=== PATIENT | female | born 1935 | race Two or more races ===

== ENCOUNTER 2020-09-24 13:36 | Inpatient (IN) | payer OTHER ==
[2020-09-24 13:41] VITALS: BMI 25.7
[2020-09-24] MEDS ORDERED: ACETAMINOPHEN 1000 MG/100 ML VIAL (NON FORMULARY) IVPB ONE (14:25)
[2020-09-24] MEDS ORDERED: SODIUM CHLORIDE 0.9% 500 ML INFUS.BAG IV ONE (14:25)
[2020-09-24] MEDS ORDERED: ONDANSETRON 4 MG/2 ML VIAL IVPUSH ONE (14:25)
[2020-09-24] MEDS ORDERED: FAMOTIDINE 20 MG/50 ML IVPB 20 MG/50 ML MG IVPB ONE ×2 (14:25→14:44)
[2020-09-24] MEDS ORDERED: ACETAMINOPHEN INJECTION 100 ML IVPB ONE (14:44)
[2020-09-24] MEDS ORDERED: ONDANSETRON 4 MG/2 ML VIAL ONE (14:44)
[2020-09-24 15:18] LABS: BASO % 0.3 % (0-2.0); EOS % 2.5 % (0-4.5); HEMATOCRIT 35.6 % (32.4-45.2); HEMOGLOBIN 11.8 GM/dL (10.7-15.3); LYMPH % 14.2 % (8-40); MCH 26.4 pg (25.7-33.7); MEAN CELL VOLUME 79.8 fl (80-96); MEAN PLT VOLUME 8.2 fl (7.5-11.1); MONO % 5.8 % (3.8-10.2); NEUT % 77.2 % (42.8-82.8); PLATELET COUNT 373 K/MM3 (134-434); RBC 4.46 M/mm3 (3.60-5.2); RDW 15.3 % (11.6-15.6); WHITE BLOOD COUNT 12.9 K/mm3 (4.0-10.0)
[2020-09-24 15:28] LABS: CHLORIDE 94 mmol/L (98-107); SODIUM 134 mmol/L (136-145)
[2020-09-24 15:31] LABS: ALBUMIN 3.2 g/dl (3.4-5.0); BLOOD UREA NITROGEN 17.8 mg/dL (7-18); CO2 30 mmol/L (21-32); GLUCOSE,RANDOM 119 mg/dL (74-106); LIPASE 71 U/L (73-393); MAGNESIUM 2.4 mg/dL (1.8-2.4)
[2020-09-24 15:33] LABS: CREATININE 0.7 mg/dL (0.55-1.3)
[2020-09-24 15:34] LABS: PHOSPHOROUS 3.2 mg/dL (2.5-4.9); SGOT/AST 28 U/L (15-37); SGPT/ALT 26 U/L (13-61)
[2020-09-24 15:35] LABS: BILIRUBIN,TOTAL 0.5 mg/dL (0.2-1); TOT PROT 7.2 g/dl (6.4-8.2)
[2020-09-24 15:36] LABS: ALK PHOS 72 U/L (45-117)
[2020-09-24 15:49] LABS: ANION GAP 10 MMOL/L (8-16)
[2020-09-24] MEDS ORDERED: POTASSIUM CHLORIDE TABS 20 MEQ TABLET.ER (FP) PO ONE ×4 (16:09→19:03)
[2020-09-24 16:29] LABS: PH,URINE 8.5 (5.0-8.0); URINE APPEARANCE CLEAR; URINE BILIRUBIN NEGATIVE (NEGATIVE); URINE COLOR YELLOW; URINE GLUCOSE (UA) NEGATIVE (NEGATIVE); URINE KETONE NEGATIVE (NEGATIVE); URINE LEUK ESTERASE NEGATIVE (NEGATIVE); URINE NITRITE NEGATIVE (NEGATIVE); URINE PROTEIN TRACE (NEGATIVE)
[2020-09-24] MEDS ORDERED: CIPROFLOXACIN 400 MG/D5W 400 MG/200 ML IVPB IVPB ONE (17:26)
[2020-09-24] MEDS ORDERED: LACTATED RINGERS SOLUTION 1,000 ML IV SCH (17:45)
[2020-09-24] MEDS ORDERED: POTASSIUM ACETATE IV SCH (17:49)
[2020-09-24] MEDS ORDERED: LACTATED RINGERS IV SCH (17:49)
[2020-09-24] MEDS ORDERED: LACTATED RINGERS SOLUTION 1,000 ML with POTASSIUM CHLORIDE 20 MEQ IV SCH ×2 (18:03→23:50)
[2020-09-24] MEDS ORDERED: ZOLPIDEM TARTRATE 5 MG TABLET PO PRN (22:00)
[2020-09-25] MEDS ORDERED: ZOLPIDEM TARTRATE 5 MG TABLET PO ONE (00:40)
[2020-09-25] MEDS: ROSUVASTATIN CA 10 MG TABLET (FP) PO SCH ×2 (01:26→21:20)
[2020-09-25 01:44] LABS: CALCIUM 8.9 mg/dL (8.5-10.1)
[2020-09-25 01:46] LABS: BLOOD UREA NITROGEN 14.8 mg/dL (7-18)
[2020-09-25 01:48] LABS: CREATININE 0.7 mg/dL (0.55-1.3)
[2020-09-25] MEDS: LEVOTHYROXINE NA 50 MCG TABLET (FP) PO SCH (06:06)
[2020-09-25] MEDS ORDERED: POTASSIUM CHLORIDE 20 MEQ in LACTATED RINGERS SOLUTION 1,000 ML IV SCH (07:53)
[2020-09-25 07:55] LABS: HEMATOCRIT 32.6 % (32.4-45.2); HEMOGLOBIN 11.1 GM/dL (10.7-15.3); MCH 26.8 pg (25.7-33.7); MEAN CELL VOLUME 78.7 fl (80-96); MEAN PLT VOLUME 8.3 fl (7.5-11.1); PLATELET COUNT 327 K/MM3 (134-434); RBC 4.15 M/mm3 (3.60-5.2); WHITE BLOOD COUNT 9.1 K/mm3 (4.0-10.0)
[2020-09-25 08:26] LABS: CALCIUM 8.6 mg/dL (8.5-10.1)
[2020-09-25 08:28] LABS: ALBUMIN 2.8 g/dl (3.4-5.0); BLOOD UREA NITROGEN 12.1 mg/dL (7-18); MAGNESIUM 2.2 mg/dL (1.8-2.4)
[2020-09-25 08:31] LABS: BILIRUBIN,TOTAL 0.5 mg/dL (0.2-1); CREATININE 0.6 mg/dL (0.55-1.3); PHOSPHOROUS 2.7 mg/dL (2.5-4.9)
[2020-09-25 08:33] LABS: TOT PROT 6.1 g/dl (6.4-8.2)
[2020-09-25] MEDS ORDERED: DEXTROSE 5%-WATER - 50 ML IVPB ONE (09:42)
[2020-09-25] MEDS ORDERED: cefTRIAXone SODIUM 1 GM VIAL ONE (09:42)
[2020-09-25] MEDS ORDERED: CEFTRIAXONE 1 GM in DEXTROSE 5%-WATER - 50 ML IVPB SCH (10:00)
[2020-09-25] MEDS: amLODIPine BESYLATE 10 MG TABLET (FP) PO SCH (10:32)
[2020-09-25] MEDS: CEFTRIAXONE 1 GM in DEXTROSE 5%-WATER - 50 ML IVPB SCH (10:32)
[2020-09-25] MEDS: POLYETHYLENE GLYCOL 3350 119 GM BTL PO SCH (21:19)
[2020-09-25] MEDS ORDERED: MELATONIN 5 MG TABLETS PO ONE (21:30)
[2020-09-26] MEDS: LEVOTHYROXINE NA 50 MCG TABLET (FP) PO SCH (06:04)
[2020-09-26 07:08] LABS: BASO % 0.8 % (0-2.0); EOS % 12.7 % (0-4.5); HEMATOCRIT 33.9 % (32.4-45.2); HEMOGLOBIN 11.6 GM/dL (10.7-15.3); LYMPH % 28.4 % (8-40); MCH 27.2 pg (25.7-33.7); MCHC 34.3 g/dl (32.0-36.0); MEAN CELL VOLUME 79.2 fl (80-96); MONO % 6.6 % (3.8-10.2); NEUT % 51.5 % (42.8-82.8); PLATELET COUNT 354 K/MM3 (134-434); RBC 4.29 M/mm3 (3.60-5.2); RDW 14.6 % (11.6-15.6); WHITE BLOOD COUNT 8.2 K/mm3 (4.0-10.0)
[2020-09-26 07:45] LABS: CALCIUM 8.9 mg/dL (8.5-10.1)
[2020-09-26 07:46] LABS: BLOOD UREA NITROGEN 8.6 mg/dL (7-18)
[2020-09-26 07:49] LABS: CREATININE 0.7 mg/dL (0.55-1.3)
[2020-09-26 07:50] LABS: BILIRUBIN,TOTAL 0.5 mg/dL (0.2-1)
[2020-09-26 07:51] LABS: TOT PROT 6.4 g/dl (6.4-8.2)
[2020-09-26] MEDS ORDERED: cefTRIAXone SODIUM 1 GM VIAL ONE (09:32)
[2020-09-26] MEDS ORDERED: DEXTROSE 5%-WATER - 50 ML IVPB ONE (09:33)
[2020-09-26] MEDS: amLODIPine BESYLATE 10 MG TABLET (FP) PO SCH (09:38)
[2020-09-26] MEDS: CEFTRIAXONE 1 GM in DEXTROSE 5%-WATER - 50 ML IVPB SCH (09:39)
[2020-09-26] MEDS: POLYETHYLENE GLYCOL 3350 119 GM BTL PO SCH ×2 (09:39→21:19)
[2020-09-26] MEDS ORDERED: POTASSIUM CHLORIDE ORAL LIQUID 20 MEQ/15 ML PO ONE (17:36)
[2020-09-26] MEDS ORDERED: ARTIFICIAL TEARS (POLYVINYL ALCOHOL) OPTH DROPS OU PRN (18:07)
[2020-09-26] MEDS ORDERED: POTASSIUM CHLORIDE TABS 20 MEQ TABLET.ER (FP) PO ONE (21:00)
[2020-09-26] MEDS: ARTIFICIAL TEARS (POLYVINYL ALCOHOL) OPTH DROPS OU SCH ×2 (21:16→21:22)
[2020-09-26] MEDS: LATANOPROST 0.005% OPHTH SOLN 2.5ML BOTTLE OU SCH (21:17)
[2020-09-26] MEDS: ROSUVASTATIN CA 10 MG TABLET (FP) PO SCH (21:18)
[2020-09-27] MEDS ORDERED: MELATONIN 5 MG TABLETS PO PRN (00:29)
[2020-09-27] MEDS ORDERED: ACETAMINOPHEN 325 MG TABLET (FP) PO PRN (00:30)
[2020-09-27] MEDS: MAG HYDROX/AL HYDROX/SIMETH 30 ML UNIT-DOSE CUP PO PRN (02:44)
[2020-09-27] MEDS: LEVOTHYROXINE NA 50 MCG TABLET (FP) PO SCH (06:22)
[2020-09-27 06:39] LABS: BASO % 0.6 % (0-2.0); HEMOGLOBIN 11.4 GM/dL (10.7-15.3); LYMPH % 25.9 % (8-40); MCH 26.5 pg (25.7-33.7); MCHC 33.4 g/dl (32.0-36.0); MEAN CELL VOLUME 79.4 fl (80-96); MEAN PLT VOLUME 7.8 fl (7.5-11.1); MONO % 6.4 % (3.8-10.2); NEUT % 54.1 % (42.8-82.8); PLATELET COUNT 339 K/MM3 (134-434); RBC 4.29 M/mm3 (3.60-5.2); RDW 15.2 % (11.6-15.6); WHITE BLOOD COUNT 7.2 K/mm3 (4.0-10.0)
[2020-09-27 07:02] LABS: ALBUMIN 2.6 g/dl (3.4-5.0); BLOOD UREA NITROGEN 13.7 mg/dL (7-18); CALCIUM 8.2 mg/dL (8.5-10.1); MAGNESIUM 2.1 mg/dL (1.8-2.4)
[2020-09-27 07:05] LABS: CREATININE 0.6 mg/dL (0.55-1.3)
[2020-09-27 07:07] LABS: BILIRUBIN,TOTAL 0.3 mg/dL (0.2-1); TOT PROT 5.8 g/dl (6.4-8.2)
[2020-09-27] MEDS ORDERED: DEXTROSE 5%-WATER - 50 ML IVPB ONE (09:51)
[2020-09-27] MEDS ORDERED: PT OWN MED DRAWER 7, Y5N ONE (09:51)
[2020-09-27] MEDS ORDERED: cefTRIAXone SODIUM 1 GM VIAL ONE (09:51)
[2020-09-27] MEDS: ARTIFICIAL TEARS (POLYVINYL ALCOHOL) OPTH DROPS OU SCH ×2 (09:54→21:06)
[2020-09-27] MEDS: CEFTRIAXONE 1 GM in DEXTROSE 5%-WATER - 50 ML IVPB SCH (09:54)
[2020-09-27] MEDS: POTASSIUM CHLORIDE TABS 20 MEQ TABLET.ER (FP) PO SCH (09:55)
[2020-09-27] MEDS: amLODIPine BESYLATE 10 MG TABLET (FP) PO SCH (09:55)
[2020-09-27] MEDS: POLYETHYLENE GLYCOL 3350 119 GM BTL PO SCH ×2 (09:57→21:07)
[2020-09-27] MEDS: LATANOPROST 0.005% OPHTH SOLN 2.5ML BOTTLE OU SCH (21:06)
[2020-09-27] MEDS: ROSUVASTATIN CA 10 MG TABLET (FP) PO SCH (21:06)
[2020-09-28] MEDS: LEVOTHYROXINE NA 50 MCG TABLET (FP) PO SCH (06:06)
[2020-09-28] MEDS ORDERED: cefTRIAXone SODIUM 1 GM VIAL ONE (08:49)
[2020-09-28] MEDS ORDERED: DEXTROSE 5%-WATER - 50 ML IVPB ONE (08:49)
[2020-09-28] MEDS: amLODIPine BESYLATE 10 MG TABLET (FP) PO SCH (09:00)
[2020-09-28] MEDS: POTASSIUM CHLORIDE TABS 20 MEQ TABLET.ER (FP) PO SCH (09:00)
[2020-09-28] MEDS: CEFTRIAXONE 1 GM in DEXTROSE 5%-WATER - 50 ML IVPB SCH (09:02)
[2020-09-28] MEDS: ARTIFICIAL TEARS (POLYVINYL ALCOHOL) OPTH DROPS OU SCH ×2 (09:02→21:19)
[2020-09-28] MEDS: POLYETHYLENE GLYCOL 3350 119 GM BTL PO SCH ×2 (09:03→21:20)
[2020-09-28 09:19] LABS: BASO % 0.6 % (0-2.0); EOS % 6.2 % (0-4.5); HEMATOCRIT 38.3 % (32.4-45.2); HEMOGLOBIN 12.6 GM/dL (10.7-15.3); LYMPH % 23.3 % (8-40); MCH 26.1 pg (25.7-33.7); MCHC 32.9 g/dl (32.0-36.0); MEAN CELL VOLUME 79.3 fl (80-96); MEAN PLT VOLUME 8.1 fl (7.5-11.1); MONO % 5.7 % (3.8-10.2); NEUT % 64.2 % (42.8-82.8); PLATELET COUNT 410 K/MM3 (134-434); RBC 4.82 M/mm3 (3.60-5.2); RDW 14.8 % (11.6-15.6); WHITE BLOOD COUNT 10.9 K/mm3 (4.0-10.0)
[2020-09-28 10:05] LABS: CALCIUM 8.9 mg/dL (8.5-10.1)
[2020-09-28 10:06] LABS: MAGNESIUM 2.1 mg/dL (1.8-2.4)
[2020-09-28 10:11] LABS: BILIRUBIN,TOTAL 0.3 mg/dL (0.2-1); CREATININE 0.8 mg/dL (0.55-1.3)
[2020-09-28 10:13] LABS: TOT PROT 6.9 g/dl (6.4-8.2)
[2020-09-28] MEDS: MAG HYDROX/AL HYDROX/SIMETH 30 ML UNIT-DOSE CUP PO PRN (10:13)
[2020-09-28 10:15] LABS: ALBUMIN 3.2 g/dl (3.4-5.0)
[2020-09-28] MEDS ORDERED: MAG HYDROX/AL HYDROX/SIMETH 30 ML UNIT-DOSE CUP PO PRN (13:13)
[2020-09-28] MEDS ORDERED: ACETAMINOPHEN 325 MG TABLET (FP) PO PRN (13:13)
[2020-09-28] MEDS ORDERED: MELATONIN 5 MG TABLETS PO PRN (13:13)
[2020-09-28] MEDS ORDERED: ROSUVASTATIN CA 10 MG TABLET (FP) PO SCH (22:00)
[2020-09-28] MEDS ORDERED: LATANOPROST 0.005% OPHTH SOLN 2.5ML BOTTLE OU SCH (22:00)
[2020-09-29] MEDS ORDERED: LEVOTHYROXINE NA 50 MCG TABLET (FP) PO SCH (07:00)
[2020-09-29 08:05] VITALS: TEMP 98.1
[2020-09-29 08:57] LABS: EOS % 10.5 % (0-4.5); HEMATOCRIT 36.6 % (32.4-45.2); HEMOGLOBIN 12.4 GM/dL (10.7-15.3); LYMPH % 35.5 % (8-40); MCH 26.7 pg (25.7-33.7); MCHC 33.8 g/dl (32.0-36.0); MEAN CELL VOLUME 78.9 fl (80-96); MEAN PLT VOLUME 8.1 fl (7.5-11.1); MONO % 6.7 % (3.8-10.2); NEUT % 46.3 % (42.8-82.8); PLATELET COUNT 427 K/MM3 (134-434); RBC 4.64 M/mm3 (3.60-5.2); RDW 15.3 % (11.6-15.6); WHITE BLOOD COUNT 8.1 K/mm3 (4.0-10.0)
[2020-09-29] MEDS ORDERED: cefTRIAXone SODIUM 1 GM VIAL ONE (09:17)
[2020-09-29] MEDS ORDERED: DEXTROSE 5%-WATER - 50 ML IVPB ONE (09:17)
[2020-09-29] MEDS ORDERED: POTASSIUM CHLORIDE TABS 20 MEQ TABLET.ER (FP) PO SCH (10:00)
[2020-09-29] MEDS ORDERED: CEFTRIAXONE 1 GM in DEXTROSE 5%-WATER - 50 ML IVPB SCH (10:00)
[2020-09-29] MEDS ORDERED: amLODIPine BESYLATE 10 MG TABLET (FP) PO SCH (10:00)
[2020-09-29] MEDS ORDERED: AMOX TR/POT CLAV 875MG/125MG TABLETS (FP) PO SCH ×2 (10:19→17:30)
[2020-09-29] MEDS ORDERED: PT OWN MED DRAWER 7, Y5N ONE (10:50)
[2020-09-29] MEDS: ARTIFICIAL TEARS (POLYVINYL ALCOHOL) OPTH DROPS OU SCH (11:08)
[2020-09-29] MEDS: POLYETHYLENE GLYCOL 3350 119 GM BTL PO SCH (11:09)
[2020-09-29 11:48] LABS: ALBUMIN 3.1 g/dl (3.4-5.0); CALCIUM 8.7 mg/dL (8.5-10.1)
[2020-09-29 11:49] LABS: BLOOD UREA NITROGEN 11.4 mg/dL (7-18); MAGNESIUM 2.3 mg/dL (1.8-2.4)
[2020-09-29 11:52] LABS: CREATININE 0.7 mg/dL (0.55-1.3)
[2020-09-29 11:53] LABS: BILIRUBIN,TOTAL 0.3 mg/dL (0.2-1); TOT PROT 6.7 g/dl (6.4-8.2)
[2020-09-29 16:27] VITALS: BP 135/76; PULSE 85
== END 2020-09-29 17:18 | disposition home or self-care (01) | DRG 392 ==
LOC: JER 13:36 → JERBED 17:28 → J4S 23:40 → J8W 09-28 13:12
PROVIDERS: ADMIT Internal Medicine; ATTEND Nurse Practitioner Acute Care
DX: K57.32 Diverticulitis of large intestine without perforation or abscess without bleeding (principal); I24.8 Other forms of acute ischemic heart disease; M80.88XA Other osteoporosis with current pathological fracture, vertebra(e), initial encounter for fracture; I10 Essential (primary) hypertension; E78.5 Hyperlipidemia, unspecified; E87.6 Hypokalemia; E86.0 Dehydration; R94.31 Abnormal electrocardiogram [ECG] [EKG]; E03.9 Hypothyroidism, unspecified; R19.7 Diarrhea, unspecified; K63.9 Disease of intestine, unspecified; Z20.822 Contact with and (suspected) exposure to COVID-19
CPT/HCPCS: 36415; 71046-TC-FY; 74177-TC; 80048; 80053; 81003; 82378; 82550; 82553; 82728; 83036; 83540; 83550; 83605; 83690; 83735; 83993; 84100; 84132; 84443; 84484; 85025; 85027; 86140; 87045; 87046; 87086; 87186; 87324; 87449; 87804; 93005; 93010; 99285-25; C9803; J0131; Q9967; U0003; U0005